=== PATIENT | female | born 1955 | race Caucasian/White ===

== ENCOUNTER 2017-04-17 13:13 | Inpatient (IN) | payer OTHER ==
[~2017-04-17] VITALS: Ht 165.1 cm; Wt 88.0 kg
[2017-04-17] MEDS ORDERED: GABAPENTIN400 MG (14:02)
[2017-04-17] MEDS ORDERED: GABAPENTIN100 MG (14:02)
[2017-04-17] MEDS ORDERED: LUNESTA2 MG (14:02)
[2017-04-17] MEDS ORDERED: METOPROLOL SUCC25 MG (14:03)
[2017-04-26] MEDS ORDERED: GABAPENTIN800 MG PO (09:54)
[2017-04-26] MEDS ORDERED: AMOX-CLAV 875-1 EACH PO ×2 (09:54→09:57)
[2017-04-26] MEDS ORDERED: DOCUSATE SODIU100 MG PO (09:54)
[2017-04-26] MEDS ORDERED: CLONAZEPAM1 MG PO (09:55)
[2017-04-26] MEDS ORDERED: PERCOCET 5-3251 EACH PO (09:55)
[2017-04-26] MEDS ORDERED: COLACE100 MG PO (11:51)
[2017-04-26] MEDS ORDERED: NEURONTIN800 MG PO (11:51)
== END 2017-04-26 16:42 | DRG 460 ==
LOC: O/R 04-25 05:08 → PED 04-25 05:08 → RECOVERY 04-25 12:31 → PED 04-25 17:23
PROVIDERS: Orthopaedic Surgery Orthopaedic Surgery of the Spine
PROC: 0ST20ZZ Resection of Lumbar Vertebral Disc, Open Approach (ICD-10-PCS; 2017-04-25)
PROC: 0SG00AJ Fusion of Lumbar Vertebral Joint with Interbody Fusion Device, Posterior Approach, Anterior Column, Open Approach (ICD-10-PCS; 2017-04-25)
PROC: 07DS3ZZ Extraction of Vertebral Bone Marrow, Percutaneous Approach (ICD-10-PCS; 2017-04-25)
PROC: 0SG00A0 Fusion of Lumbar Vertebral Joint with Interbody Fusion Device, Anterior Approach, Anterior Column, Open Approach (ICD-10-PCS; principal; 2017-04-25 13:00)
DX: M51.16 Intervertebral disc disorders with radiculopathy, lumbar region (principal); M47.26 Other spondylosis with radiculopathy, lumbar region; I10 Essential (primary) hypertension